=== PATIENT | male | born 1940 | race Caucasian/White ===

== ENCOUNTER 2019-03-30 06:00 | Inpatient (IN) ==
[2019-03-23 11:36] LABS: HEMATOCRIT 43.4 % (42.0-52.0); HEMOGLOBIN 14.3 g/dL (14.0-18.0); MCH 30.2 PG (27-31); MCHC 32.9 g/dL (33-37); MCV 91.8 FL (81-99); MPV 11.9 FL (7.4-10.4); RBC 4.73 XMIL (4.7-6.1); RDW 13.4 % (11.5-14.5); WBC 7.52 X1000 (4.8-10.8)
[2019-03-23 12:10] LABS: CALCIUM 9.3 mg/dL (8.8-10.2); CREATININE 1.2 mg/dL (0.7-1.2)
[2019-03-30] MEDS ORDERED: LR 1,000 ML ONE ×2 (06:34→07:57)
[2019-03-30] MEDS ORDERED: KEFZOL 1 GM/D5W 1 GM/50 ML IVPB ONE (06:34)
[2019-03-30] MEDS ORDERED: FENTANYL ONE ×2 (07:12→10:50)
[2019-03-30] MEDS ORDERED: VERSED ONE (07:12)
[2019-03-30] MEDS ORDERED: DIPRIVAN 1% ONE (07:12)
--- NOTE | 2019-03-30 07:44 | EKG Report ---
Test Performed on : 03/30/2019 06:29:43 AM Test Reason : Preop Blood Pressure : / mmHG Vent. Rate : 066 BPM Atrial Rate : 066 BPM P-R Int : 180 ms QRS Dur : 138 ms QT Int : 424 ms P-R-T Axes : 069 -68 -09 degrees QTc Int : 444 ms Normal sinus rhythm. Right bundle branch block Left anterior fascicular block Bifascicular block Septal infarct , age undetermined Abnormal ECG When compared with ECG of 04-JAN-2019 10:00, Nonspecific T wave abnormality no longer evident in Lateral leads Confirmed by Cristino VEE, Conor Newton ([id number]) on 03/31/2019 7:01:29 PM
[2019-03-30] MEDS ORDERED: PAPAVERINE ONE (08:26)
[2019-03-30] MEDS ORDERED: KEFZOL ONE (08:26)
[2019-03-30] MEDS ORDERED: NS 1,000 ML ONE ×2 (08:27→11:42)
[2019-03-30] MEDS: HEPARIN ONE ×2 (08:53→08:57)
[2019-03-30 09:27] LABS: URINE SOURCE CATH
[2019-03-30] MEDS ORDERED: DECADRON ONE (09:36)
[2019-03-30] MEDS ORDERED: ZOFRAN ONE (09:36)
[2019-03-30 09:40] LABS: BILIRUBIN URINE NEGATIVE (NEGATIVE); BLOOD URINE NEGATIVE (NEGATIVE); COLOR YELLOW; GLUCOSE URINE NEGATIVE (NEGATIVE); KETONE URINE NEGATIVE (NEGATIVE); LEUKOCYTES URINE NEGATIVE (NEGATIVE); NITRITE URINE NEGATIVE (NEGATIVE); PROTEIN URINE NEGATIVE (NEGATIVE); SP GRAVITY URINE 1.014; TURBIDITY URINE CLEAR (CLEAR); UROBILINOGEN URINE NORMAL (NORMAL)
[2019-03-30 09:41] LABS: UR EPITHELIAL CELLS <10 /HPF (<10); URINE BACTERIA NEGATIVE /HPF; URINE RBC <10 /HPF (<10); URINE WBC <10 /HPF (<10)
[2019-03-30] MEDS ORDERED: OFIRMEV 1000 MG/ISOTONIC SOLN 1,000 MG/100 ML BOTTLE ONE (10:25)
[2019-03-30] MEDS ORDERED: SODIUM CHLORIDE 0.9% 10 ML ONE (11:38)
[2019-03-30] MEDS ORDERED: NEO-SYNEPHRINE ONE (11:38)
[2019-03-30] MEDS ORDERED: ZOFRAN IV PRN (12:22)
[2019-03-30] MEDS ORDERED: NORCO-10 PO PRN (12:22)
[2019-03-30] MEDS ORDERED: DILAUDID IV PRN (12:22)
[2019-03-30] MEDS: KEFZOL 1 GM/D5W 1 GM/50 ML IVPB IV SCH (16:09)
[2019-03-30] MEDS: PLAVIX PO SCH (16:09)
[2019-03-30] MEDS: NS 1,000 ML IV SCH (16:10)
--- NOTE | 2019-03-30 18:07 | OPERATIVE NOTE ---
PROCEDURE DATE: 03/30/2019 PROCEDURE PERFORMED: Right femoral popliteal in situ vein bypass. SURGEON: Andreas Dozier MD HOMEOPATHIC DOCTOR: GINETTE Linn PREOPERATIVE DIAGNOSIS: Nonhealing right ulcer and right SFA occlusion. POSTOPERATIVE DIAGNOSIS: Nonhealing right ulcer and right SFA occlusion. DESCRIPTION OF PROCEDURE: Satisfactory general endotracheal anesthesia was achieved. The right groin and leg were prepped and draped in a sterile fashion. The foot was excluded. The vein had been previously marked. We then made a vertical incision in the right groin. We dissected down to the common femoral artery surrounded with an umbilical tape. The deep femoral surrounded with a large vessel loop. The superficial femoral surrounded with a large vessel loop. The greater saphenous vein was identified and followed back to its takeoff from the deep femoral vein. 7000 units of heparin were given. We marked the vein. We ligated the branches off the greater saphenous vein and then after the heparin had circulated for over 3 minutes we then clamped off the takeoff of the greater saphenous vein with a Satinsky clamp. We then used a small bulldog distally in the vein and then divided the vein at its take-off. We then over sewed the stump with a 5-0 Prolene stitch using a horizontal mattress 1st followed by a running simple stitch 2nd. The open end of the greater saphenous vein was inspected. No valves were identified that required excision. We then extended it over to the bifurcation of the common femoral. There was no flow in the SFA and the flow went down the deep femoral. We had to actually tunnel it underneath some tissue to get it over to the vein in the straightest manner. We then clamped off the profunda with a profunda clamp. We clamped off the common femoral. We then incised the artery right at the bifurcation and extended with the Cason scissors. We then used a 6 punch to punch a hole in the artery right into the common femoral/. We then constructed the anastomosis between the greater saphenous vein and the common femoral artery using a 5-0 Prolene stitch under 2.5 loupe magnification. Upon completion the anastomosis, we allowed flow. The flow went down to the greater saphenous to the first valve. We then turned our attention distally. We incised the leg the distal medial thigh and extended our incision in the popliteal space. We identified the proximal popliteal artery surrounding the vessel loops. The greater saphenous vein was identified too in the inferior skin flap subcutaneous tissue and we identified it and marked it. We actually made a small arteriotomy to be certain arterial back bleeding was good there and the artery admitted a 3, 3.5 and 4 dilator so we knew the back bleeding was fine and the runoff was good. So, we then found a branch off the greater saphenous vein and made a small venotomy and passed our LeMaitre valvulotome up to the proximal anastomosis. We opened the valvulotome and lysed the valves. We made 2 passes to completely incise the valves and upon removing the 2nd run we actually got excellent pulsatile flow so that branch was clipped and divided. It became necessary to have a little bit more length of vein to get to the arteriotomy and so we found another more distal branch and past the valvulotome again up through the greater saphenous vein only for a ways into the mid greater saphenous vein. Once again, engaged the valves and divided another valve and this then gave us enough length to reach the artery. Then after removing the valvulotome we clipped off that branch, we divided the greater saphenous vein distally and then translocated it over to the artery. We then clamped off the vein graft with the bulldog clamp. We cut the vein graft to the appropriate length and spatulated it and then sewed the anastomosis under 2.5 loupe magnification using a 6-0 Prolene stitch. Just prior to finishing it, we back bled the artery, fore bled the vein graft which was excellent and then finished the anastomosis and flow was established. Hemostasis was satisfactory in the distal anastomosis. We looked back at the proximal anastomosis, it also was good and a good pulse was noted within the vein graft. We then obtained a Glow 'N Tell Tape and shot an arteriogram using a butterfly in the common femoral, and this showed 2 significant branches that required cut-down and clipping to stop diverting flow over to the deep femoral vein. We then shot another completion arteriogram and this showed no further branches that had to be clipped. Good flow into the popliteal artery with good flow down to the trifurcation and onward. Again hemostasis was satisfactory. We irrigated out the wounds with Kefzol-impregnated saline. We then closed the groin wound with 2 layers using 3-0 Polysorb running. A couple of interrupted 3-0 Polysorb pops and then another 3-0 Polysorb running. Interrupted 3-0 Polysorb's were placed in the subcutaneous tissue over our counter incisions and the distal incision was closed with 2 layers of running 3-0 Polysorb. The skin was then closed with eddi. Sterile dressings were applied. He tolerated it well. Estimated blood loss was about 300 mL. After his incisions were closed in covered, we then redressed his heel as well. cc: Andreas Dozier MD
[2019-03-30] MEDS: PERIDEX MT SCH (20:40)
[2019-03-30] MEDS ORDERED: ASPIRIN PO SCH (21:00)
--- NOTE | 2019-03-30 23:15 | GENERAL SURGERY PROGRESS NOTE ---
DATE: 03/30/2019 Mr. Valentin is comfortable. He awakened upon being spoken to. He is afebrile, heart rate 58, blood pressure 137/71. The bandage is dry. His leg is warm. The plan will be to check his labs in the morning and re-evaluate his heel wound. I am pleased with his progress. cc: Andreas Dozier MD
[2019-03-31] MEDS: NS 1,000 ML IV SCH (00:30)
[2019-03-31] MEDS: KEFZOL 1 GM/D5W 1 GM/50 ML IVPB IV SCH ×2 (00:32→09:03)
[2019-03-31 06:58] LABS: BASO# 0.01 X1000 (0.0-0.2); BASO% 0.1 % (0.0-0.8); HEMATOCRIT 34.6 % (42.0-52.0); IMM GRAN# 0.02 X1000 (0.0-0.04); IMM GRAN% 0.2 % (0.0-0.5); LYMPH# 2.04 X1000 (1.2-3.4); LYMPH% 16.4 % (20.5-51.1); MCH 29.3 PG (27-31); MCHC 31.8 g/dL (33-37); MCV 92.3 FL (81-99); MONO# 1.02 X1000 (0.11-0.59); MONO% 8.2 % (1.7-9.3); MPV 12.3 FL (7.4-10.4); NEUT# 9.34 X1000 (1.4-6.5); NEUT% 75.1 % (42.2-75.2); PLT 187 X1000 (130-400); RBC 3.75 XMIL (4.7-6.1); RDW 13.4 % (11.5-14.5); WBC 12.43 X1000 (4.8-10.8)
[2019-03-31 07:27] LABS: CALCIUM 7.8 mg/dL (8.8-10.2); CREATININE 1.3 mg/dL (0.7-1.2); POTASSIUM 4.6 mmol/L (3.5-5.1)
[2019-03-31] MEDS ORDERED: DIFLUCAN 100 MG/NS 100 MG/50 ML IVPB IV ONE (07:56)
[2019-03-31 07:59] VITALS: BP 135/55
[2019-03-31] MEDS ORDERED: VITAMIN C PO SCH (09:00)
[2019-03-31] MEDS ORDERED: COZAAR PO SCH (09:00)
[2019-03-31] MEDS: PLAVIX PO SCH (09:03)
[2019-03-31] MEDS: PERIDEX MT SCH (09:03)
--- NOTE | 2019-03-31 14:17 | GENERAL SURGERY PROGRESS NOTE ---
DATE: 03/31/2019 Mr. Valentin now 1 day after his right femoral-popliteal in situ vein bypass. He has a palpable posterior tibial pulse. His heel ulcer looks healthy. His wound bandages are dry. Laboratory shows a hemoglobin 11, hematocrit 34. Chemistry is fine. The plan will be to allow him to go home. He is to go home on aspirin and Plavix daily, write him something for pain. I will give him a dose of Diflucan prior to discharge. We discussed wound care with his . He will return to see me in the office in 10 days. cc: Andreas Dozier MD
--- NOTE | 2019-03-31 15:35 | Extremity Venous Study ---
PROCEDURE NAME: Vein Mapping Right GSV - 03/30/2019 STUDY PERFORMED: Right great saphenous vein mapping for arterial bypass. REFERRING PHYSICIAN: Dr. Dozier IDENTIFYING DATA: A 78-year-old male. SKETCHER: Julita Gomez RVT FINDINGS: The right great saphenous vein is compressible and had flow through it throughout its length. In the calf, this vein measured 2 to 2.7 mm in greatest dimension. At the knee, it measured 2.8 to 3 mm in greatest dimension. In the thigh, it measured 3.1 to 5.5 mm in greatest dimension. INTERPRETATION: Right great saphenous vein satisfactory for arterial bypass graft. cc: MD Andreas Alvarez MD
[2019-03-31] MEDS ORDERED: CRESTOR PO SCH (21:00)
== END 2019-03-31 11:41 | disposition home health service (06) | DRG 254 ==
LOC: SURHOLD 06:00 → EDSTATUS 08:30 → 4N 08:55
PROVIDERS: ADMIT Surgery; ATTEND Surgery